=== PATIENT | male | born 1965 | race Hispanic/Latino ===

== ENCOUNTER 2022-05-26 13:57 | Emergency (ER) | payer BC, SELFPAY | END 2022-05-26 15:28 | disposition home or self-care (01) | LOC: ERS 13:57 | DX: M10.9 Gout, unspecified (principal); I10 Essential (primary) hypertension; E78.5 Hyperlipidemia, unspecified; E78.00 Pure hypercholesterolemia, unspecified; Z79.899 Other long term (current) drug therapy ==